=== PATIENT | male | born 1945 ===

== ENCOUNTER 2017-11-14 14:20 | Inpatient (IN) | payer MEDICARE, BC ==
--- NOTE | 2017-11-14 15:18 | C.PDOC ---
History Of Present Illness 72-year-old male, PMHx includes Diabetes, presents to the emergency department with complaints of swelling, redness, and pain for 4 days. Pt stepped on a nail on 11/09/18 with slippers. The following day he saw his PMD and was treated with antibiotics and tetanus. Today pt was evlauated by his physician practice administrator, Dr jacobson who instructed to come to ED for further evaluation. Denies numbness/ weakness, fever. PMD Sudheer Maria MD, Podiatry MD [place]. Time Seen by Provider: 11/14/17 14:35 Chief Complaint (Nursing): Lower Extremity Problem/Injury History Per: Patient History/Exam Limitations: no limitations Onset/Duration Of Symptoms: Days Past Medical History Reviewed: Historical Data, Nursing Documentation, Vital Signs Vital Signs: Last Vital Signs Temp 98.2 F 11/14/17 16:55 Pulse 75 11/14/17 16:55 Resp 18 11/14/17 16:55 BP 141/63 11/14/17 16:55 Pulse Ox 97 11/14/17 16:55 - [facility] Procedures OTH WOUND IRRIGATION (07/25/06) OTHER SKIN & SUBQ I D (07/25/06) Family History: States: No Known Family Hx - Social History Hx Alcohol Use: No Hx Substance Use: No - Immunization History Hx Tetanus Toxoid Vaccination: Yes (11/10/2017) Hx Influenza Vaccination: Yes Hx Pneumococcal Vaccination: Yes Review Of Systems Constitutional: Negative for: Fever Respiratory: Negative for: Shortness of Breath Gastrointestinal: Negative for: Vomiting Musculoskeletal: Positive for: Foot Pain Neurological: Negative for: Weakness, Numbness Physical Exam - Physical Exam Appears: Non-toxic, No Acute Distress Skin: Warm, Dry, No Rash Head: Atraumatic, Normacephalic Eye(s): bilateral: Normal Inspection, EOMI Nose: Normal Oral Mucosa: Moist Neck: Normal ROM Chest: Symmetrical Cardiovascular: Rhythm Regular Respiratory: Normal Breath Sounds, No Accessory Muscle Use Extremity: Tenderness (Left foot: puncture wound to plantar aspect, with swelling, tenderness and erythema to dorsal aspect. ), No Calf Tenderness, Capillary Refill (<2 sec), No Deformity, Swelling Pulses: Left Dorsalis Pedis: Decreased, Right Dorsalis Pedis: Decreased Neurological/Psych: Oriented x3, Normal Speech ED Course And Treatment - Laboratory Results Result Diagrams: 11/14/17 15:29 11/14/17 15:29 O2 Sat by Pulse Oximetry: 93 (RA) Pulse Ox Interpretation: Normal Progress Note: Case discussed with Dr Maria, agrees to admit under his serice for Cellulitis of L foot. Dr Diane, podiatry, evalauted pt and discussed case with Dr Crane, agreed upon plan and treatment. Disposition - Disposition Disposition: HOSPITALIZED Disposition Time: 17:26 Condition: STABLE - Clinical Impression Clinical Impression: Cellulitis, Puncture wound - Scribe Statement The provider has reviewed the documentation as recorded by the Scribe (Derick Hoover) All medical record entries made by the Scribe were at my direction and personally dictated by me. I have reviewed the chart and agree that the record accurately reflects my personal performance of the history, physical exam, medical decision making, and the department course for this patient. I have also personally directed, reviewed, and agree with the discharge instructions and disposition.
[2017-11-14 15:33] LABS: BASO # 0.1 K/uL (0.0-0.2); BASO % 0.7 % (0.0-2.0); EOS # 0.1 K/uL (0.0-0.7); EOS % 1.3 % (0.0-4.0); HEMOGLOBIN 12.4 g/dL (12.0-18.0); LYMPH # 1.5 K/uL (1.0-4.3); LYMPH % 17.9 % (20.0-40.0); MEAN CORPUSCULAR HEMOGLOBIN 30.9 pg (27.0-31.0); MEAN CORPUSCULAR HGB CONC 33.9 g/dL (33.0-37.0); MEAN PLATELET VOLUME 7.5 fL (7.2-11.7); MONO # 0.8 K/uL (0.0-0.8); NEUT # 5.8 K/uL (1.8-7.0); NEUT % 70.1 % (50.0-75.0); RBC 4.02 Mil/uL (4.40-5.90); RED CELL DISTRIBUTION WIDTH 13.4 % (11.5-14.5); WHITE BLOOD COUNT 8.3 K/uL (4.8-10.8)
[2017-11-14 15:56] LABS: ALB/GLOB RATIO 0.8 (1.0-2.1); ALBUMIN 3.9 g/dL (3.5-5.0); ALT/SGPT 24 U/L (21-72); AST/SGOT 35 U/L (17-59); BLOOD UREA NITROGEN 13 mg/dL (9-20); CALCIUM 9.1 mg/dl (8.6-10.4); GFR AFRICAN-AMERICAN > 60; GFR NON-AFRICAN AMERICAN > 60
--- NOTE | 2017-11-14 17:06 | CP.PCM.CON ---
History of Present Illness - History of Present Illness History of Present Illness: Consult note for Dr. Monique 72-year-old male patient with PMHx of DM was seen at bedside concerning Left foot cellulitis secondary to puncture wound. Patient stepped on a nail on 11/09 during his trip to [facility]. The nail punctured through his slippers and left a hole to his Left foot plantar aspect. He was given oral Abx by his PMD the next day and Tetanus. He deneis any N/V/F/C associated with t he wound. This patient is well-known to Dr. Monique who is planning to take this patient to OR for I&D tomorrow (11/15/17) 9:30AM. Podiatry treatment plan was explained to the patient and the patient agrees with podiatry plan. He denies numbness/weakness, fever. Review of Systems - Constitutional Constitutional: As Per HPI Past Patient History - Past Social History Smoking Status: Never Smoked - ENDOCRINE/METABOLIC Hx Diabetes Mellitus Type 1: Yes - PSYCHIATRIC Hx Substance Use: No - SURGICAL HISTORY Hx Surgeries: Yes Other/Comment: varicose vein, cyst on the back - ANESTHESIA Hx Anesthesia: Yes Hx Anesthesia Reactions: No Hx Malignant Hyperthermia: No Meds Allergies/Adverse Reactions: Allergies Allergy/AdvReac Type Severity Reaction Status Date / Time aspirin Allergy Intermediate RASH Verified 11/14/17 14:51 Physical Exam - Constitutional Appears: Well, Non-toxic, No Acute Distress - Head Exam Head Exam: ATRAUMATIC - Extremities Exam Additional comments: Bilateral lower extremity exam DERM: LEFT - Small open puncture wound noted to plantar aspect of Left mid-foot measuring 0.7cm x 0.7cm x 0.5cm. Purulent drainage is noted. Mild mal-odor noted , erythema noted to left mid-foot dorsal and plantarly. No probe to bone Right - Xerosis noted. Skin crack noted to heel, dried blood noted. Otherwise unremarkable VASC: Left foot warmer to touch. Palpable DP and PT noted to right foot 2/4, Non -palpable DP noted to Left foot, PT palpable 1/4. 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 NEURO: Gross sensation intact - Neurological Exam Neurological exam: Alert, Oriented x3 - Psychiatric Exam Psychiatric exam: Normal Affect, Normal Mood Results - Vital Signs Recent Vital Signs: Last Vital Signs Temp 98.6 F 11/14/17 14:22 Pulse 93 H 11/14/17 14:22 Resp 18 11/14/17 14:22 BP 138/56 L 11/14/17 14:22 Pulse Ox 93 L 11/14/17 15:24 - Labs Result Diagrams: 11/14/17 15:29 11/14/17 15:29 Labs: Laboratory Results - last 24 hr 11/14/17 11/14/17 15:29 15:29 WBC 8.3 RBC 4.02 L Hgb 12.4 Hct 36.6 MCV 91.0 MCH 30.9 MCHC 33.9 RDW 13.4 Plt Count 241 MPV 7.5 Neut % (Auto) 70.1 Lymph % (Auto) 17.9 L [place] % (Auto) 10.0 Eos % (Auto) 1.3 Baso % (Auto) 0.7 Neut # (Auto) 5.8 Lymph # (Auto) 1.5 [place] # (Auto) 0.8 Eos # (Auto) 0.1 Baso # (Auto) 0.1 ESR 112 H Sodium 140 Potassium 4.1 Chloride 101 Carbon Dioxide 27 Anion Gap 17 BUN 13 Creatinine 0.8 Est GFR ( Amer) > 60 Est GFR (Non-Af Amer) > 60 Random Glucose 232 H Calcium 9.1 Total Bilirubin 0.4 AST 35 ALT 24 Alkaline Phosphatase 83 Total Protein 8.5 H Albumin 3.9 Globulin 4.6 H Albumin/Globulin Ratio 0.8 L Assessment & Plan - Assessment and Plan (Free Text) Assessment: 72 yo male patient with puncture wound to left plantar foot Plan: Patient to OR tomorrow morning 9:30 AM Requesting medical clearance for Left foot incision and drainage by Dr. Monique labs and vitals reviewed NPO past midnight ordered Patient is aware of podiaty plan for surgery tomorrow morning Continue IV Abx Bilateral feet dressed with Betadine, DSD Podiatry will continue to follow in-house
[2017-11-14] MEDS ORDERED: Clindamycin 300 MG in Sodium Chloride 0.9% 50 ML IVPB STA (18:27)
[2017-11-14] MEDS: Dextrose 5%/0.45% NS 1,000 ML IV SCH (20:30)
[2017-11-14] MEDS ORDERED: Oxycodone/Acetaminophen 5/325 mg Tab ONE (20:34)
[2017-11-14] MEDS: Oxycodone/Acetaminophen 5/325 mg Tab PO PRN (20:38)
[2017-11-14] MEDS: (Novolin R) Insulin Human Regular 100 units/ml vial SC SCH (21:59)
[2017-11-14] MEDS: Piperacill/Tazo 3.375gm in Dex 3.375 GM/50 ML BAG IVPB SCH (22:11)
[2017-11-15] MEDS: Piperacill/Tazo 3.375gm in Dex 3.375 GM/50 ML BAG IVPB SCH ×3 (05:17→21:24)
[2017-11-15 06:03] LABS: BASO % 0.6 % (0.0-2.0); EOS # 0.2 K/uL (0.0-0.7); EOS % 2.5 % (0.0-4.0); HEMOGLOBIN 11.4 g/dL (12.0-18.0); LYMPH # 1.9 K/uL (1.0-4.3); LYMPH % 28.8 % (20.0-40.0); MEAN CELL VOLUME 90.6 fL (80.0-94.0); MEAN CORPUSCULAR HEMOGLOBIN 31.2 pg (27.0-31.0); MEAN CORPUSCULAR HGB CONC 34.4 g/dL (33.0-37.0); MEAN PLATELET VOLUME 7.5 fL (7.2-11.7); MONO # 0.7 K/uL (0.0-0.8); MONO % 11.4 % (0.0-10.0); NEUT # 3.7 K/uL (1.8-7.0); NEUT % 56.7 % (50.0-75.0); RBC 3.65 Mil/uL (4.40-5.90); RED CELL DISTRIBUTION WIDTH 13.9 % (11.5-14.5); WHITE BLOOD COUNT 6.5 K/uL (4.8-10.8)
[2017-11-15 06:10] LABS: INR 1.1; PROTHROMBIN TIME 12.3 SECONDS (9.7-12.2)
[2017-11-15 06:41] LABS: BLOOD UREA NITROGEN 14 mg/dL (9-20); CALCIUM 8.7 mg/dl (8.6-10.4); GFR AFRICAN-AMERICAN > 60; GFR NON-AFRICAN AMERICAN > 60
[2017-11-15] MEDS: (Novolin R) Insulin Human Regular 100 units/ml vial SC SCH ×4 (07:18→22:50)
--- NOTE | 2017-11-15 07:27 | RAD ---
PROCEDURE: Left Foot Radiographs. HISTORY: Left foot puncture wound COMPARISON: None. FINDINGS: BONES: No acute fracture or destructive bony lesion identified. JOINTS: Marked degenerative changes are identified throughout the interphalangeal joints diffusely with lesser similar changes present of the remaining joints of the left foot. Heterotopic calcification is identified at the dorsal medial mid to hindfoot soft tissues with no other radiodensity seen throughout the remaining left foot soft tissues. No emphysema soft tissue changes are identified. SOFT TISSUES: [id number] edema is suggested at the dorsal foot soft tissues predominate at the midfoot to forefoot. OTHER FINDINGS: None. IMPRESSION: Heterotopic calcification is identified in the linear fashion at the dorsomedial midfoot to hindfoot soft tissues and moderate soft tissue edema is seen predominate at the midfoot dorsally. No emphysematous soft tissue changes are identified. Further clinical correlation recommended. No fracture, subluxation or dislocation. Degenerative changes are seen at the forefoot greater than midfoot and hindfoot joints.
--- NOTE | 2017-11-15 08:12 | CP.PCM.CON ---
History of Present Illness - History of Present Illness History of Present Illness: Reason for consult: pre-op eval for I&D HPI: 72-year-old male, PMHx includes Diabetes, presents to the emergency department with complaints of swelling, redness, and pain for 4 days. Pt stepped on a nail on 11/09/18 with slippers. The following day he saw his PMD and was treated with antibiotics and tetanus. Today pt was evlauated by his testing coordinator, Dr jacobson who instructed to come to ED for further evaluation. Denies numbness/weakness, fever. Review of Systems - Constitutional Constitutional: absent: Fever, Headache - EENT Eyes: absent: Discharge Nose/Mouth/Throat: absent: Nasal Congestion - Cardiovascular Cardiovascular: absent: Chest Pain, Dyspnea, Pedal Edema, Syncope - Respiratory Respiratory: absent: Cough, Dyspnea, Dyspnea on Exertion - Gastrointestinal Gastrointestinal: absent: Abdominal Pain, Change in Bowel Habits, Melena, Vomiting - Genitourinary Genitourinary: absent: Difficulty Urinating, Urinary Incontinence - Musculoskeletal Musculoskeletal: absent: Abnormal Gait, Arthralgias Additional comments: pain in left foot - Neurological Neurological: absent: Abnormal Gait, Abnormal Hearing Past Patient History - Past Medical History & Family History Past Medical History?: Yes - Past Social History Smoking Status: Light Smoker < 10 Cigarettes Daily - CARDIAC Hx Cardiac Disorders: Yes Hx Circulatory Problems: Yes - PULMONARY Hx Respiratory Disorders: No - NEUROLOGICAL Hx Neurological Disorder: No - HEENT Hx HEENT Problems: No - RENAL Hx Chronic Kidney Disease: No - ENDOCRINE/METABOLIC Hx Endocrine Disorders: Yes Hx Diabetes Mellitus Type 1: Yes - HEMATOLOGICAL/ONCOLOGICAL Hx Blood Disorders: No - INTEGUMENTARY Hx Dermatological Problems: No - MUSCULOSKELETAL/RHEUMATOLOGICAL Hx Musculoskeletal Disorders: Yes Hx Falls: Yes - GASTROINTESTINAL Hx Gastrointestinal Disorders: No - GENITOURINARY/GYNECOLOGICAL Hx Genitourinary Disorders: No - PSYCHIATRIC Hx Psychophysiologic Disorder: No Hx Substance Use: No - SURGICAL HISTORY Hx Surgeries: Yes Other/Comment: varicose vein, cyst on the back removed - ANESTHESIA Hx Anesthesia: Yes Hx Anesthesia Reactions: No Hx Malignant Hyperthermia: No Meds Allergies/Adverse Reactions: Allergies Allergy/AdvReac Type Severity Reaction Status Date / Time aspirin Allergy Intermediate RASH Verified 11/14/17 14:51 - Medications Medications: Current Medications Heparin Sodium (Porcine) (Heparin) 5,000 units SC Q12 [facility]AN[facility] Last Admin: 11/14/17 22:04 Dose: 5,000 units Dextrose/Sodium Chloride (Dextrose 5%/0.45% Ns 1000 Ml) 1,000 mls @ 75 mls/hr IV .[id number] [facility] Last Admin: 11/14/17 20:30 Dose: 75 mls/hr Piperacillin Sod/Tazobactam Sod (Zosyn 3.375 Gm Iv Premix) 3.375 gm in 50 mls @ 100 mls/hr IVPB Q8 SHANIA PRN Reason: Protocol Last Admin: 11/15/17 05:17 Dose: 100 mls/hr Insulin Human Regular (Novolin R) 0 unit SC ACHS SHANIA PRN Reason: Protocol Last Admin: 11/15/17 07:18 Dose: Not Given Oxycodone/Acetaminophen (Percocet 5/325 Mg Tab) 1 tab PO Q8 PRN PRN Reason: Pain, moderate (4-7) Stop: 11/17/17 22:01 Last Admin: 11/14/17 20:38 Dose: 1 tab Physical Exam - Constitutional Appears: Non-toxic - Head Exam Head Exam: NORMAL INSPECTION - Eye Exam Eye Exam: absent: Scleral icterus - ENT Exam ENT Exam: absent: Mucous Membranes Moist - Neck Exam Neck exam: Positive for: Full Rom, Lymphadenopathy - Respiratory Exam Respiratory Exam: Decreased Breath Sounds - Cardiovascular Exam Cardiovascular Exam: REGULAR RHYTHM - GI/Abdominal Exam GI & Abdominal Exam: absent: Soft, Tenderness - Exam Exam: absent: Testicular Tenderness - Extremities Exam Extremities exam: Negative for: calf tenderness, pedal edema, tenderness - Neurological Exam Neurological exam: Alert, Oriented x3 Results - Vital Signs Recent Vital Signs: Last Vital Signs Temp 98.8 F 11/15/17 07:10 Pulse 67 11/15/17 07:10 Resp 18 11/15/17 07:10 BP 150/73 11/15/17 07:10 Pulse Ox 95 11/15/17 07:10 - Labs Result Diagrams: 11/15/17 05:58 11/15/17 05:58 Labs: Laboratory Results - last 24 hr 11/14/17 11/14/17 11/14/17 15:29 15:29 21:57 WBC 8.3 RBC 4.02 L Hgb 12.4 Hct 36.6 MCV 91.0 MCH 30.9 MCHC 33.9 RDW 13.4 Plt Count 241 MPV 7.5 Neut % (Auto) 70.1 Lymph % (Auto) 17.9 L [place] % (Auto) 10.0 Eos % (Auto) 1.3 Baso % (Auto) 0.7 Neut # (Auto) 5.8 Lymph # (Auto) 1.5 [place] # (Auto) 0.8 Eos # (Auto) 0.1 Baso # (Auto) 0.1 ESR 112 H PT INR Sodium 140 Potassium 4.1 Chloride 101 Carbon Dioxide 27 Anion Gap 17 BUN 13 Creatinine 0.8 Est GFR ( Amer) > 60 Est GFR (Non-Af Amer) > 60 POC Glucose (mg/dL) 202 H Random Glucose 232 H Calcium 9.1 Total Bilirubin 0.4 AST 35 ALT 24 Alkaline Phosphatase 83 Total Protein 8.5 H Albumin 3.9 Globulin 4.6 H Albumin/Globulin Ratio 0.8 L 11/15/17 11/15/17 11/15/17 05:58 05:58 05:58 WBC 6.5 RBC 3.65 L Hgb 11.4 L Hct 33.1 L MCV 90.6 MCH 31.2 H MCHC 34.4 RDW 13.9 Plt Count 222 MPV 7.5 Neut % (Auto) 56.7 Lymph % (Auto) 28.8 [place] % (Auto) 11.4 H Eos % (Auto) 2.5 Baso % (Auto) 0.6 Neut # (Auto) 3.7 Lymph # (Auto) 1.9 [place] # (Auto) 0.7 Eos # (Auto) 0.2 Baso # (Auto) 0.0 ESR PT 12.3 H INR 1.1 Sodium 141 Potassium 4.3 Chloride 101 Carbon Dioxide 30 Anion Gap 14 BUN 14 Creatinine 0.9 Est GFR ( Amer) > 60 Est GFR (Non-Af Amer) > 60 POC Glucose (mg/dL) Random Glucose 144 H Calcium 8.7 Total Bilirubin AST ALT Alkaline Phosphatase Total Protein Albumin Globulin Albumin/Globulin Ratio 11/15/17 06:07 WBC RBC Hgb Hct MCV MCH MCHC RDW Plt Count MPV Neut % (Auto) Lymph % (Auto) [place] % (Auto) Eos % (Auto) Baso % (Auto) Neut # (Auto) Lymph # (Auto) [place] # (Auto) Eos # (Auto) Baso # (Auto) ESR PT INR Sodium Potassium Chloride Carbon Dioxide Anion Gap BUN Creatinine Est GFR ( Amer) Est GFR (Non-Af Amer) POC Glucose (mg/dL) 145 H Random Glucose Calcium Total Bilirubin AST ALT Alkaline Phosphatase Total Protein Albumin Globulin Albumin/Globulin Ratio Assessment & Plan - Assessment and Plan (Free Text) Assessment: Foreign body, left foot w/ cellulitis T2dm HTN Plan: Pt may go for I&D under moderate sedation or general anesthesia with acceptable risk. Antibiotic as per ID - Date & Time Date: 11/15/17 Time: 08:16
--- NOTE | 2017-11-15 08:43 | CP.PCM.HP ---
History of Present Illness - History of Present Illness History of Present Illness: CC: Swelling 72 y/o male with CAD s/p [place], NIDDM. Patient on 11/09 step on nail. He was seen 11/11 and started on Augmentin. Patient continue to swell and was draining pus. He was seen by podiatry. Patient wound was cleaned and sent to ER. Present on Admission - Present on Admission Any Indicators Present on Admission: Yes History of DVT/PE: No History of Uncontrolled Diabetes: No Urinary Catheter: No Decubitus Ulcer Present: No Review of Systems - Review of Systems Systems not reviewed;Unavailable: Acuity of Condition - Constitutional Constitutional: absent: Chills, Fever, Headache, Increased Appetite, Sleep Apnea , Weight Loss - EENT Eyes: absent: Loss of Peripheral Vision, Sees Flashes, Loss of Vision Ears: absent: Ear Discharge Nose/Mouth/Throat: absent: Nasal Discharge, Post Nasal Drip, Sinus Pressure, Change in Voice, Dysphagia, Mouth Pain - Cardiovascular Cardiovascular: absent: Chest Pain, Irregular Heart Rhythm, Leg Edema, Leg Ulcers, Orthopnea, Palpitations, Paroxysmal Nocturnal Dyspnea - Respiratory Respiratory: Cough. absent: Dyspnea, Dyspnea on Exertion, Pain on Inspiration, Chest Congestion - Gastrointestinal Gastrointestinal: absent: Abdominal Pain, Cramping, Dyspepsia, Melena - Genitourinary Genitourinary: absent: Hematuria, Urinary Urgency, Hx Renal/Bladder Calculi - Musculoskeletal Musculoskeletal: absent: Abnormal Gait, Loss of Height, Muscle Weakness, Myalgias, Neck Pain - Integumentary Integumentary: absent: Alopecia, Furuncle, New Lesions - Psychiatric Psychiatric: absent: Abnormal Sleep Pattern, Confusion, Hopelessness, Paranoia Past Patient History - Infectious Disease Hx of Infectious Diseases: None - Past Medical History & Family History Past Medical History?: Yes - Past Social History Smoking Status: Light Smoker < 10 Cigarettes Daily - CARDIAC Hx Cardiac Disorders: Yes Hx Circulatory Problems: Yes - PULMONARY Hx Respiratory Disorders: No - NEUROLOGICAL Hx Neurological Disorder: No - HEENT Hx HEENT Problems: No - RENAL Hx Chronic Kidney Disease: No - ENDOCRINE/METABOLIC Hx Endocrine Disorders: Yes Hx Diabetes Mellitus Type 1: Yes - HEMATOLOGICAL/ONCOLOGICAL Hx Blood Disorders: No - INTEGUMENTARY Hx Dermatological Problems: No - MUSCULOSKELETAL/RHEUMATOLOGICAL Hx Musculoskeletal Disorders: Yes Hx Falls: Yes - GASTROINTESTINAL Hx Gastrointestinal Disorders: No - GENITOURINARY/GYNECOLOGICAL Hx Genitourinary Disorders: No - PSYCHIATRIC Hx Psychophysiologic Disorder: No Hx Substance Use: No - SURGICAL HISTORY Hx Surgeries: Yes Other/Comment: varicose vein, cyst on the back removed - ANESTHESIA Hx Anesthesia: Yes Hx Anesthesia Reactions: No Hx Malignant Hyperthermia: No Meds Allergies/Adverse Reactions: Allergies Allergy/AdvReac Type Severity Reaction Status Date / Time aspirin Allergy Intermediate RASH Verified 11/14/17 14:51 Physical Exam - Constitutional Appears: Well - Eye Exam Eye Exam: Normal appearance - ENT Exam ENT Exam: Mucous Membranes Moist - Neck Exam Neck exam: Positive for: Full Rom. Negative for: Lymphadenopathy, Tenderness - Respiratory Exam Respiratory Exam: Clear to Auscultation Bilateral. absent: Rales, Rhonchi, Wheezes - Cardiovascular Exam Cardiovascular Exam: +S1, +S2. absent: Gallop, REGULAR RHYTHM, JVD, Systolic Murmur - GI/Abdominal Exam GI & Abdominal Exam: Soft. absent: Rebound, Rigid, Tenderness - Extremities Exam Extremities exam: Positive for: full ROM. Negative for: calf tenderness, joint swelling, normal capillary refill ((+) left foot w/ puncture markm * (+_ mathieu swelling on distal fppt) Results - Vital Signs Recent Vital Signs: Last Vital Signs Temp 98.8 F 11/15/17 07:10 Pulse 67 11/15/17 07:10 Resp 18 11/15/17 07:10 BP 150/73 11/15/17 07:10 Pulse Ox 95 11/15/17 07:10 - Labs Result Diagrams: 11/15/17 05:58 11/15/17 05:58 Labs: Laboratory Results - last 24 hr 11/14/17 11/14/17 11/14/17 15:29 15:29 21:57 WBC 8.3 RBC 4.02 L Hgb 12.4 Hct 36.6 MCV 91.0 MCH 30.9 MCHC 33.9 RDW 13.4 Plt Count 241 MPV 7.5 Neut % (Auto) 70.1 Lymph % (Auto) 17.9 L [place] % (Auto) 10.0 Eos % (Auto) 1.3 Baso % (Auto) 0.7 Neut # (Auto) 5.8 Lymph # (Auto) 1.5 [place] # (Auto) 0.8 Eos # (Auto) 0.1 Baso # (Auto) 0.1 ESR 112 H PT INR Sodium 140 Potassium 4.1 Chloride 101 Carbon Dioxide 27 Anion Gap 17 BUN 13 Creatinine 0.8 Est GFR ( Amer) > 60 Est GFR (Non-Af Amer) > 60 POC Glucose (mg/dL) 202 H Random Glucose 232 H Calcium 9.1 Total Bilirubin 0.4 AST 35 ALT 24 Alkaline Phosphatase 83 Total Protein 8.5 H Albumin 3.9 Globulin 4.6 H Albumin/Globulin Ratio 0.8 L 11/15/17 11/15/17 11/15/17 05:58 05:58 05:58 WBC 6.5 RBC 3.65 L Hgb 11.4 L Hct 33.1 L MCV 90.6 MCH 31.2 H MCHC 34.4 RDW 13.9 Plt Count 222 MPV 7.5 Neut % (Auto) 56.7 Lymph % (Auto) 28.8 [place] % (Auto) 11.4 H Eos % (Auto) 2.5 Baso % (Auto) 0.6 Neut # (Auto) 3.7 Lymph # (Auto) 1.9 [place] # (Auto) 0.7 Eos # (Auto) 0.2 Baso # (Auto) 0.0 ESR PT 12.3 H INR 1.1 Sodium 141 Potassium 4.3 Chloride 101 Carbon Dioxide 30 Anion Gap 14 BUN 14 Creatinine 0.9 Est GFR ( Amer) > 60 Est GFR (Non-Af Amer) > 60 POC Glucose (mg/dL) Random Glucose 144 H Calcium 8.7 Total Bilirubin AST ALT Alkaline Phosphatase Total Protein Albumin Globulin Albumin/Globulin Ratio 11/15/17 06:07 WBC RBC Hgb Hct MCV MCH MCHC RDW Plt Count MPV Neut % (Auto) Lymph % (Auto) [place] % (Auto) Eos % (Auto) Baso % (Auto) Neut # (Auto) Lymph # (Auto) [place] # (Auto) Eos # (Auto) Baso # (Auto) ESR PT INR Sodium Potassium Chloride Carbon Dioxide Anion Gap BUN Creatinine Est GFR ( Amer) Est GFR (Non-Af Amer) POC Glucose (mg/dL) 145 H Random Glucose Calcium Total Bilirubin AST ALT Alkaline Phosphatase Total Protein Albumin Globulin Albumin/Globulin Ratio Assessment & Plan - Assessment and Plan (Free Text) Assessment: L foot cellulitis, NIDDM, CAD IV antibiotic For Podiatry procedure
--- NOTE | 2017-11-15 08:51 | CP.PCM.PN ---
Subjective - Date & Time of Evaluation Date of Evaluation: 11/15/17 Time of Evaluation: 08:30 - Subjective Subjective: Consult note for Dr. Monique 72-year-old male patient patient was seen at bedside this morning concerning scheduled surgery for Left foot incision and drainage with Dr. Monique. Patient is resting in bed with no report of acute distress. AAOx3. Dressing to Left foot was taken off at the time of visit. Patient was again explained of podiatry surgial plan of incision and drainage which the patient understands and agrees. NPO status is confirmed. Patient denies of any N/V/F/C or SOB Objective - Vital Signs/Intake and Output Vital Signs (last 24 hours): Temp Pulse Resp BP Pulse Ox 98.8 F 67 18 150/73 95 11/15/17 07:10 11/15/17 07:10 11/15/17 07:10 11/15/17 07:10 11/15/17 07:10 Intake and Output: 11/15/17 11/15/17 06:59 18:59 Intake Total 850 Output Total 200 650 Balance 650 -650 - Medications Medications: Current Medications Heparin Sodium (Porcine) (Heparin) 5,000 units SC Q12 [facility] Last Admin: 11/14/17 22:04 Dose: 5,000 units Dextrose/Sodium Chloride (Dextrose 5%/0.45% Ns 1000 Ml) 1,000 mls @ 75 mls/hr IV .[id number] [facility] Last Admin: 11/14/17 20:30 Dose: 75 mls/hr Piperacillin Sod/Tazobactam Sod (Zosyn 3.375 Gm Iv Premix) 3.375 gm in 50 mls @ 100 mls/hr IVPB Q8 [facility]ANIA PRN Reason: Protocol Last Admin: 11/15/17 05:17 Dose: 100 mls/hr Insulin Human Regular (Novolin R) 0 unit SC ACHS SHANIA PRN Reason: Protocol Last Admin: 11/15/17 07:18 Dose: Not Given Oxycodone/Acetaminophen (Percocet 5/325 Mg Tab) 1 tab PO Q8 PRN PRN Reason: Pain, moderate (4-7) Stop: 11/17/17 22:01 Last Admin: 11/14/17 20:38 Dose: 1 tab - Labs Labs: 11/15/17 05:58 11/15/17 05:58 PT 12.3 SECONDS (9.7-12.2) H 11/15/17 05:58 INR 1.1 11/15/17 05:58 - Constitutional Appears: Well, Non-toxic, No Acute Distress - Extremities Exam Additional comments: Bilateral lower extremity exam DERM: LEFT - Small open puncture wound noted to plantar aspect of Left mid-foot measuring 0.7cm x 0.7cm x 0.5cm. Purulent drainage is noted. Mild mal-odor noted , erythema noted to left mid-foot dorsal and plantarly. No probe to bone Right - Xerosis noted. Skin crack noted to heel, dried blood noted. Otherwise unremarkable VASC: Left foot warmer to touch. Palpable DP and PT noted to right foot 2/4, Non -palpable DP noted to Left foot, PT palpable 1/4. 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 NEURO: Gross sensation intact - Neurological Exam Neurological Exam: Alert, Awake, Oriented x3 - Psychiatric Exam Psychiatric exam: Normal Affect, Normal Mood Assessment and Plan - Assessment and Plan (Free Text) Assessment: 72 yo male patient with puncture wound to left plantar foot Plan: Patient was seen, evaluated Rounded with Dr. Monique To OR this morning for Incision and drainage of Left foot labs and vitals reviewed NPO status confirmed No guarantees made regarding outcome of surgery Cardiology clearance by Dr. Joaquin obtained Written surgical consent obtained Podiatry will continue to follow in-house
[2017-11-15] MEDS ORDERED: ceFAZolin IV 1 gm in Dextrose 0 GM/0 ML BAG IVPB ONE (09:07)
[2017-11-15] MEDS: Bupivacaine HCl 0.5% PF (10 ml) Inj ONE ×2 (09:55→10:35)
[2017-11-15] MEDS ORDERED: Lidocaine Hydrochloride 10 ML INJ ONE (09:56)
[2017-11-15] MEDS ORDERED: Midazolam 2 MG/2 ML VIAL ONE (10:26)
[2017-11-15] MEDS ORDERED: Propofol 10 mg/ml Inj (20 ML) ONE (10:28)
[2017-11-15] MEDS ORDERED: Lidocaine 2% Inj (20ml) ONE (10:34)
[2017-11-15] MEDS ORDERED: Bupivacaine HCl 0.25% PF (10 ml) Inj ONE (10:34)
[2017-11-15] MEDS: Dextrose 5%/0.45% NS 1,000 ML IV SCH (10:45)
--- NOTE | 2017-11-15 11:10 | PCM.SURG1 ---
Surgeon's Initial Post Op Note - Surgeon's Notes Surgeon: Dr. Monique Rubber Block Layer: Dr. Dayron Diane Type of Anesthesia: IV Sedation, Local Anesthesia Administered By: Dr. Pierce Pre-Operative Diagnosis: Left foot abscess secondary to puncture wound Operative Findings: Peroxide DSD packing Post-Operative Diagnosis: same Operation Performed: Left foot incision and drainage Specimen/Specimens Removed: Left foot non-viable tissue Estimated Blood Loss: EBL {In ML}: 10 Blood Products Given: N/A Drains Used: No Drains Post-Op Condition: Good Date of Surgery/Procedure: 11/15/17 Time of Surgery/Procedure: 10:00
[2017-11-15] MEDS ORDERED: HYDROmorphone 0.5 mg/0.5 ml ISec IVP PRN (11:18)
[2017-11-15] MEDS ORDERED: Lactated Ringer's 1,000 ML IV SCH (11:30)
[2017-11-15] MEDS ORDERED: Vancomycin 1 gm/NS 200 ml 1 GM/200 ML BAG IVPB SCH (13:00)
[2017-11-15] MEDS: Oxycodone/Acetaminophen 5/325 mg Tab PO PRN (14:26)
--- NOTE | 2017-11-15 16:00 | CP.PCM.CON ---
History of Present Illness - History of Present Illness History of Present Illness: 72-year-old male patient with PMHx of DM was seen at bedside concerning Left foot cellulitis secondary to puncture wound. According to HX , the Patient stepped on a nail on 11/09 during his trip to [facility]. The nail punctured through his slippers and left a hole to his Left foot plantar aspect. He was given oral Abx by his PMD the next day and Tetanus. DESPITE I AND D THE PT C/O SEVERE PPAIN AND CHILLS WITH RIGORS IV ANTIBIOTICS IN PROGRESS Review of Systems - Review of Systems All systems: reviewed and no additional remarkable complaints except - Constitutional Constitutional: As Per HPI - EENT Eyes: absent: As Per HPI, Blind Spots, Blurred Vision, Change in Vision, Decreased Night Vision, Diplopia, Discharge, Dry Eye, Exophthalmos, Floaters, Irritation, Itchy Eyes, Loss of Peripheral Vision, Pain, Photophobia, Requires Corrective Lenses, Sees Flashes, Spots in Vision, Tunnel Vision, Other Visual Disturbances, Loss of Vision, Other Ears: absent: As Per HPI, Decreased Hearing, Ear Discharge, Ear Pain, Tinnitus, Abnormal Hearing, Disequilibrium, Dizziness, Other Nose/Mouth/Throat: absent: As Per HPI, Epistaxis, Nasal Congestion, Nasal Discharge, Nasal Obstruction, Nasal Trauma, Nose Pain, Post Nasal Drip, Sinus Pain, Sinus Pressure, Bleeding Gums, Change in Voice, Dental Pain, Dry Mouth, Dysphagia, Halitosis, Hoarsness, Lip Swelling, Mouth Lesions, Mouth Pain, Odynophagia, Sore Throat, Throat Swelling, Tongue Swelling, Facial Pain, Neck Pain, Neck Mass, Other - Cardiovascular Cardiovascular: absent: As Per HPI, Acrocyanosis, Chest Pain, Chest Pain at Rest , Chest Pain with Activity, Claudication, Diaphoresis, Dyspnea, Dyspnea on Exertion, Edema, Irregular Heart Rhythm, Pain Radiating to Arm/Neck/Jaw, Leg Edema, Leg Ulcers, Lightheadedness, Orthopnea, Palpitations, Paroxysmal Nocturnal Dyspnea, Pedal Edema, Radiating Pain, Rapid Heart Rate, Slow Heart Rate, Syncope, Other - Respiratory Respiratory: absent: As Per HPI, Cough, Dyspnea, Hemoptysis, Dyspnea on Exertion , Wheezing, Snoring, Stridor, Pain on Inspiration, Chest Congestion, Excessive Mucous Production, Change in Mucous Color, Pain with Coughing, Other - Gastrointestinal Gastrointestinal: absent: As Per HPI, Abdominal Pain, Belching, Bloating, Change in Bowel Habits, Change in Stool Character, Coffee Ground Emesis, Constipation, Cramping, Diarrhea, Dyspepsia, Dysphagia, Early Satiety, Excessive Flatus, Fecal Incontinence, Heartburn, Hematemesis, Hematochezia, Loose Stools, Melena, Nausea, Odynophagia, Temesmus, Vomiting, Other - Genitourinary Genitourinary: absent: As Per HPI, Change in Urinary Stream, Difficulty Urinating, Dysuria, Flank Pain, Hematuria, Pyuria, Nocturia, Urinary Incontinence, Urinary Frequency, Urinary Hesitance, Urinary Urgency, Voiding Freq/Small Amts, Freq UTI, Hx Renal/Bladder Calculi, Hx /Renal Surgery, Bladder Distension, Other - Musculoskeletal Musculoskeletal: As Per HPI - Integumentary Integumentary: As Per HPI, Skin Pain, Wounds - Neurological Neurological: absent: As Per HPI, Abnormal Gait, Abnormal Hearing, Abnormal Movements, Abnormal Speech, Behavioral Changes, Burning Sensations, Confusion, Convulsions, Disequilibrium, Dizziness, Numbness, Focal Weakness, Frequent Falls , Headaches, Lack of Coordination, Loss of Vision, Memory Loss, Paresthesias, Radicular Pain, Restless Legs, Sensory Deficit, Syncope, Tingling, Tremor, Vertigo, Weakness, Other Visual Disturbances, Other - Psychiatric Psychiatric: absent: As Per HPI, Abnormal Sleep Pattern, Anhedonia, Anxiety, Auditory Hallucinations, Behavioral Changes, Change in Appetite, Change in Libido, Confusion, Depression, Difficulty Concentrating, Hallucinations, Homicidal Ideation, Hopelessness, Irritability, Memory Loss, Mood Swings, Panic Attacks, Paranoia, Suicidal Ideation, Visual Hallucinations, Tactile Hallucinations, Other - Endocrine Endocrine: absent: As Per HPI, Change in Body Appearance, Change in Libido, Cold Intolorance, Deepening of Voice, Excessive Sweating, Fatigue, Flushing, Heat Intolorance, Increase in Ring/Shoe/Hat Size, Palpitations, Polydipsia, Polyphagia, Polyuria, Other - Hematologic/Lymphatic Hematologic: absent: As Per HPI, Easy Bleeding, Easy Bruising, Lymphadenopathy, Other Past Patient History - Infectious Disease Hx of Infectious Diseases: None - Past Medical History & Family History Past Medical History?: Yes - Past Social History Smoking Status: Light Smoker < 10 Cigarettes Daily - CARDIAC Hx Cardiac Disorders: Yes Hx Circulatory Problems: Yes - PULMONARY Hx Respiratory Disorders: No - NEUROLOGICAL Hx Neurological Disorder: No - HEENT Hx HEENT Problems: No - RENAL Hx Chronic Kidney Disease: No - ENDOCRINE/METABOLIC Hx Endocrine Disorders: Yes Hx Diabetes Mellitus Type 1: Yes - HEMATOLOGICAL/ONCOLOGICAL Hx Blood Disorders: No - INTEGUMENTARY Hx Dermatological Problems: No - MUSCULOSKELETAL/RHEUMATOLOGICAL Hx Musculoskeletal Disorders: Yes Hx Falls: Yes - GASTROINTESTINAL Hx Gastrointestinal Disorders: No - GENITOURINARY/GYNECOLOGICAL Hx Genitourinary Disorders: No - PSYCHIATRIC Hx Psychophysiologic Disorder: No Hx Substance Use: No - SURGICAL HISTORY Hx Surgeries: Yes Other/Comment: varicose vein, cyst on the back removed - ANESTHESIA Hx Anesthesia: Yes Hx Anesthesia Reactions: No Hx Malignant Hyperthermia: No Meds Allergies/Adverse Reactions: Allergies Allergy/AdvReac Type Severity Reaction Status Date / Time aspirin Allergy Intermediate RASH Verified 11/14/17 14:51 - Medications Medications: Current Medications Acetaminophen (Tylenol 325mg Tab) 650 mg PO Q6 PRN PRN Reason: Pain, MILD (1-3) Heparin Sodium (Porcine) (Heparin) 5,000 units SC Q12 [facility] Last Admin: 11/14/17 22:04 Dose: 5,000 units Dextrose/Sodium Chloride (Dextrose 5%/0.45% Ns 1000 Ml) 1,000 mls @ 75 mls/hr IV .[id number] [facility] Last Admin: 11/15/17 10:45 Dose: Not Given Piperacillin Sod/Tazobactam Sod (Zosyn 3.375 Gm Iv Premix) 3.375 gm in 50 mls @ 100 mls/hr IVPB Q8 [facility] PRN Reason: Protocol Last Admin: 11/15/17 14:54 Dose: 100 mls/hr Lactated Ringer's (Lactated Ringer's) 1,000 mls @ 150 mls/hr IV .[id number] [facility] Vancomycin/Sodium Chloride (Vancomycin 1 Gm/Ns 200 Ml) 1 gm in 200 mls @ 160.1 mls/hr IVPB Q24H [facility] PRN Reason: Protocol Stop: 11/20/17 13:01 Last Admin: 11/15/17 13:10 Dose: 160.1 mls/hr Insulin Human Regular (Novolin R) 0 unit SC ACHS [facility] PRN Reason: Protocol Last Admin: 11/15/17 12:20 Dose: 2 unit Oxycodone/Acetaminophen (Percocet 5/325 Mg Tab) 1 tab PO Q8 PRN PRN Reason: Pain, moderate (4-7) Stop: 11/17/17 22:01 Last Admin: 11/15/17 14:26 Dose: 1 tab Physical Exam - Constitutional Appears: Toxic, In Acute Distress - Head Exam Head Exam: ATRAUMATIC, NORMAL INSPECTION, NORMOCEPHALIC - Eye Exam Eye Exam: PERRL. absent: Scleral icterus - ENT Exam ENT Exam: Mucous Membranes Dry, Normal External Ear Exam, Normal Oropharynx, TM' s Normal Bilaterally - Neck Exam Neck exam: Negative for: Lymphadenopathy - Respiratory Exam Respiratory Exam: Decreased Breath Sounds, Clear to Auscultation Bilateral - Cardiovascular Exam Cardiovascular Exam: Tachycardia, REGULAR RHYTHM, +S1, +S2 - GI/Abdominal Exam GI & Abdominal Exam: Diminished Bowel Sounds, Soft. absent: Tenderness - Rectal Exam Rectal Exam: Deferred - Exam Exam: NORMAL INSPECTION - Extremities Exam Extremities exam: Positive for: full ROM, normal capillary refill, pedal edema, tenderness, pedal pulses present. Negative for: calf tenderness, joint swelling , normal inspection - Back Exam Back exam: absent: CVA tenderness (L), CVA tenderness (R), paraspinal tenderness - Neurological Exam Neurological exam: Alert, CN II-XII Intact, Oriented x3, Reflexes Normal - Skin Skin Exam: Dry, Warm Additional comments: LEFT - Small open puncture wound noted to plantar aspect of Left mid-foot measuring 0.7cm x 0.7cm x 0.5cm. Purulent drainage is noted. Mild mal-odor noted , erythema noted to left mid-foot dorsal and plantarly. No probe to bone Right - Xerosis noted. Skin crack noted to heel, dried blood noted. Otherwise unremarkable VASC: Left foot warmer to touch. Palpable DP and PT noted to right foot 2/4, Non -palpable DP noted to Left foot, PT palpable 1/4. PAN OPERATOR less than 3 seconds noted to all digits ORTHO: Pain on palpation to Left foot distal to ankel joint. NEURO: Gross sensation intact Results - Vital Signs Recent Vital Signs: Last Vital Signs Temp 97.6 F 11/15/17 11:30 Pulse 61 11/15/17 11:30 Resp 13 11/15/17 11:30 BP 147/74 11/15/17 11:30 Pulse Ox 100 11/15/17 11:30 - Labs Result Diagrams: 11/15/17 05:58 11/15/17 05:58 Labs: Laboratory Results - last 24 hr 11/14/17 11/14/17 11/15/17 15:29 21:57 05:58 WBC 6.5 RBC 3.65 L Hgb 11.4 L Hct 33.1 L MCV 90.6 MCH 31.2 H MCHC 34.4 RDW 13.9 Plt Count 222 MPV 7.5 Neut % (Auto) 56.7 Lymph % (Auto) 28.8 [place] % (Auto) 11.4 H Eos % (Auto) 2.5 Baso % (Auto) 0.6 Neut # (Auto) 3.7 Lymph # (Auto) 1.9 [place] # (Auto) 0.7 Eos # (Auto) 0.2 Baso # (Auto) 0.0 ESR 112 H PT INR Sodium Potassium Chloride Carbon Dioxide Anion Gap BUN Creatinine Est GFR ( Amer) Est GFR (Non-Af Amer) POC Glucose (mg/dL) 202 H Random Glucose Calcium 11/15/17 11/15/17 11/15/17 05:58 05:58 06:07 WBC RBC Hgb Hct MCV MCH MCHC RDW Plt Count MPV Neut % (Auto) Lymph % (Auto) [place] % (Auto) Eos % (Auto) Baso % (Auto) Neut # (Auto) Lymph # (Auto) [place] # (Auto) Eos # (Auto) Baso # (Auto) ESR PT 12.3 H INR 1.1 Sodium 141 Potassium 4.3 Chloride 101 Carbon Dioxide 30 Anion Gap 14 BUN 14 Creatinine 0.9 Est GFR ( Amer) > 60 Est GFR (Non-Af Amer) > 60 POC Glucose (mg/dL) 145 H Random Glucose 144 H Calcium 8.7 11/15/17 11:15 WBC RBC Hgb Hct MCV MCH MCHC RDW Plt Count MPV Neut % (Auto) Lymph % (Auto) [place] % (Auto) Eos % (Auto) Baso % (Auto) Neut # (Auto) Lymph # (Auto) [place] # (Auto) Eos # (Auto) Baso # (Auto) ESR PT INR Sodium Potassium Chloride Carbon Dioxide Anion Gap BUN Creatinine Est GFR ( Amer) Est GFR (Non-Af Amer) POC Glucose (mg/dL) 192 H Random Glucose Calcium Assessment & Plan (1) Diabetic foot infection Status: Acute (2) Cellulitis Status: Acute (3) Puncture wound Status: Acute - Assessment and Plan (Free Text) Assessment: RULE OUT OM RECC VASCULAR EVAL AND MRI OF FOOT CONT IV ANTIBIOTICS
[2017-11-15 20:22] LABS: URINE BILIRUBIN NEGATIVE (NEGATIVE); URINE BLOOD NEGATIVE (NEGATIVE); URINE CLARITY Clear (Clear); URINE COLOR Straw (YELLOW); URINE GLUCOSE (UA) 3+ mg/dL (Normal); URINE LEUKOCYTE ESTERASE NEG Leu/uL (Negative); URINE PROTEIN NEGATIVE (NEGATIVE); URINE UROBILINOGEN NORMAL mg/dL (0.2-1.0)
[2017-11-16] MEDS: Oxycodone/Acetaminophen 5/325 mg Tab PO PRN ×2 (02:22→10:56)
[2017-11-16] MEDS: Vancomycin 1 gm/NS 200 ml 1 GM/200 ML BAG IVPB SCH ×2 (07:39→12:48)
[2017-11-16] MEDS: (Novolin R) Insulin Human Regular 100 units/ml vial SC SCH ×4 (08:29→21:33)
--- NOTE | 2017-11-16 12:45 | CP.PCM.PN ---
Subjective - Date & Time of Evaluation Date of Evaluation: 11/16/17 Time of Evaluation: 11:41 - Subjective Subjective: Consult note for Dr. Monique 72-year-old male patient 1 day s/p Left foot Incision and Drainage was seen at bedside this morning with attending Dr. Monique. Patient is resting in bed with no report of acute distress. AAOx3. Dressing cdi. Patient admits to mild pain when changing dressing. Patient denies of any N/V/F/C or SOB Objective - Vital Signs/Intake and Output Vital Signs (last 24 hours): Temp Pulse Resp BP Pulse Ox 98.2 F 68 21 148/67 98 11/16/17 07:40 11/16/17 07:40 11/16/17 07:40 11/16/17 07:40 11/16/17 07:40 Intake and Output: 11/16/17 11/16/17 06:59 18:59 Intake Total 840 Output Total 1200 825 Balance -1200 15 - Medications Medications: Current Medications Acetaminophen (Tylenol 325mg Tab) 650 mg PO Q6 PRN PRN Reason: Pain, MILD (1-3) Last Admin: 11/15/17 17:05 Dose: 650 mg Heparin Sodium (Porcine) (Heparin) 5,000 units SC Q12 [facility] Last Admin: 11/14/17 22:04 Dose: 5,000 units Vancomycin/Sodium Chloride (Vancomycin 1 Gm/Ns 200 Ml) 1 gm in 200 mls @ 133 mls/hr IVPB Q12H [facility] PRN Reason: Protocol Stop: 11/21/17 01:01 Last Admin: 11/16/17 07:39 Dose: 133 mls/hr Insulin Human Regular (Novolin R) 0 unit SC ACHS [facility] PRN Reason: Protocol Last Admin: 11/16/17 08:29 Dose: 2 unit Oxycodone/Acetaminophen (Percocet 5/325 Mg Tab) 1 tab PO Q8 PRN PRN Reason: Pain, moderate (4-7) Stop: 11/17/17 22:01 Last Admin: 11/16/17 10:56 Dose: 1 tab - Labs Labs: 11/15/17 05:58 11/15/17 05:58 PT 12.3 SECONDS (9.7-12.2) H 11/15/17 05:58 INR 1.1 11/15/17 05:58 - Constitutional Appears: Well, Non-toxic, No Acute Distress - Head Exam Head Exam: ATRAUMATIC - Extremities Exam Additional comments: Bilateral lower extremity exam DERM: LEFT - Incision site to plantar aspect of left foot measuring approx. 7cm linear longitudinal. No purulent drainage is noted. Mild sero sanguinous drainage noted. No maceration noted. Mild erythema noted around the incision site. No mal-odor noted. Right - Xerosis noted. Skin crack noted to heel, dried blood noted. Otherwise unremarkable VASC: Left foot warmer to touch. Palpable DP and PT noted to right foot 2/4, Non -palpable DP noted to Left foot, PT palpable 1/4. [employer]ITE [employer]AT [employer]ILDER less than 3 seconds noted to all digits ORTHO: Pain on palpation to Left foot distal to ankel joint. NEURO: Gross sensation intact - Neurological Exam Neurological Exam: Alert - Psychiatric Exam Psychiatric exam: Normal Affect, Normal Mood Assessment and Plan - Assessment and Plan (Free Text) Assessment: 72 yo male patient with puncture wound to left plantar foot Plan: Patient was seen, evaluated Rounded with Dr. Monique labs and vitals reviewed Left foot cleansd with peroxide, dressed with DSD, ABD, BOAZ bandage Non-weight ebaring to Left foot Patient is stable from podiatry stand point. Podiatry will continue to follow in-house
[2017-11-16 14:03] LABS: BASO # 0.1 K/uL (0.0-0.2); BASO % 0.8 % (0.0-2.0); EOS # 0.2 K/uL (0.0-0.7); EOS % 2.8 % (0.0-4.0); HEMOGLOBIN 11.4 g/dL (12.0-18.0); LYMPH # 1.4 K/uL (1.0-4.3); LYMPH % 21.6 % (20.0-40.0); MEAN CELL VOLUME 90.9 fL (80.0-94.0); MEAN CORPUSCULAR HEMOGLOBIN 31.1 pg (27.0-31.0); MEAN CORPUSCULAR HGB CONC 34.2 g/dL (33.0-37.0); MEAN PLATELET VOLUME 7.2 fL (7.2-11.7); MONO # 0.7 K/uL (0.0-0.8); MONO % 11.5 % (0.0-10.0); NEUT % 63.3 % (50.0-75.0); RBC 3.67 Mil/uL (4.40-5.90); RED CELL DISTRIBUTION WIDTH 13.6 % (11.5-14.5); WHITE BLOOD COUNT 6.4 K/uL (4.8-10.8)
[2017-11-16 14:15] LABS: ALB/GLOB RATIO 0.8 (1.0-2.1); ALBUMIN 3.5 g/dL (3.5-5.0); ALT/SGPT 24 U/L (21-72); AST/SGOT 28 U/L (17-59); BLOOD UREA NITROGEN 13 mg/dL (9-20); CALCIUM 8.5 mg/dl (8.6-10.4); GFR AFRICAN-AMERICAN > 60; GFR NON-AFRICAN AMERICAN > 60
--- NOTE | 2017-11-16 15:36 | MRI ---
MRI left forefoot History: Infection. Comparison: X-ray dated 11/14/2017 Technique: Multi-echo multiplanar sequences were performed through the left forefoot without the use of intravenous contrast. Findings: Prominent soft tissue defect seen within the volar soft tissues of the mid and forefoot extending along the interspace of the 1st and 2nd digits. Prominent reticulation and edema seen within the adjacent volar musculature of mid and forefoot. Clinical correlation. Severe hallux valgus deformity. Subchondral cyst formation seen at the medial aspect of the 1st metatarsal head. Fraying with increased signal seen at the level of the Lisfranc ligament which may represent some partial tearing and or strain. Mild nonspecific reactive edema seen at the head of the 1st proximal phalanx. Reactive edema seen within the volar soft tissues at the level of the 2nd middle and distal phalanges, nonspecific. In addition, there is signal abnormality within the 2nd middle and distal phalanges with some increased STIR signal. This is nonspecific; however, mild early acute infectious and or inflammatory changes cannot be excluded at this level. Mild reactive edema seen within the volar soft tissues at the level of the 3rd middle and distal phalanges some minimal increased signal seen within the 3rd middle and distal phalanges. Again mild early acute infectious and or inflammatory changes cannot entirely be excluded at these levels. Signal abnormality seen at the base of the 4th metatarsal bone with decreased T1 signal and increased STIR signal suggestive for osteochondral change. Subchondral cyst formation seen within the lateral aspect of the cuboid bone. Impression: 1. Prominent soft tissue defect seen within the volar soft tissues of the mid and forefoot extending along the interspace of the 1st and 2nd digits. Prominent reticulation and edema seen within the adjacent volar musculature of mid and forefoot. Clinical correlation. 2. Severe hallux valgus deformity. Subchondral cyst formation seen at the medial aspect of the 1st metatarsal head. 3. Fraying with increased signal seen at the level of the Lisfranc ligament which may represent some partial tearing and or strain. 4. Mild nonspecific reactive edema seen at the head of the 1st proximal phalanx. Reactive edema seen within the volar soft tissues at the level of the 2nd middle and distal phalanges, nonspecific. In addition, there is signal abnormality within the 2nd middle and distal phalanges with some increased STIR signal. This is nonspecific; however, mild early acute infectious and or inflammatory changes cannot be excluded at this level. Mild reactive edema seen within the volar soft tissues at the level of the 3rd middle and distal phalanges some minimal increased signal seen within the 3rd middle and distal phalanges. Again mild early acute infectious and or inflammatory changes cannot entirely be excluded at these levels. 5. Signal abnormality seen at the base of the 4th metatarsal bone with decreased T1 signal and increased STIR signal suggestive for osteochondral change. 6. Subchondral cyst formation seen within the lateral aspect of the cuboid bone.
--- NOTE | 2017-11-16 16:36 | CARD ---
APPROVED REPORT EKG Measurement Heart [id number] <Conclusion> Normal sinus rhythm Normal ECG
--- NOTE | 2017-11-16 17:40 | CP.PCM.PN ---
Subjective - Date & Time of Evaluation Date of Evaluation: 11/16/17 Time of Evaluation: 17:37 - Subjective Subjective: S: Feels better. No fever. Objective - Vital Signs/Intake and Output Vital Signs (last 24 hours): Temp Pulse Resp BP Pulse Ox 99.4 F 85 20 121/66 95 11/16/17 15:15 11/16/17 15:15 11/16/17 15:15 11/16/17 15:15 11/16/17 15:15 Intake and Output: 11/16/17 11/16/17 06:59 18:59 Intake Total 840 Output Total 1200 825 Balance -1200 15 - Medications Medications: Current Medications Acetaminophen (Tylenol 325mg Tab) 650 mg PO Q6 PRN PRN Reason: Pain, MILD (1-3) Last Admin: 11/15/17 17:05 Dose: 650 mg Heparin Sodium (Porcine) (Heparin) 5,000 units SC Q12 [facility] Last Admin: 11/14/17 22:04 Dose: 5,000 units Vancomycin/Sodium Chloride (Vancomycin 1 Gm/Ns 200 Ml) 1 gm in 200 mls @ 133 mls/hr IVPB Q12H [facility] PRN Reason: Protocol Stop: 11/21/17 01:01 Last Admin: 11/16/17 12:48 Dose: 133 mls/hr Insulin Human Regular (Novolin R) 0 unit SC ACHS [facility] PRN Reason: Protocol Last Admin: 11/16/17 12:20 Dose: 4 unit Oxycodone/Acetaminophen (Percocet 5/325 Mg Tab) 1 tab PO Q8 PRN PRN Reason: Pain, moderate (4-7) Stop: 11/17/17 22:01 Last Admin: 11/16/17 10:56 Dose: 1 tab - Labs Labs: 11/16/17 13:56 11/16/17 13:56 PT 12.3 SECONDS (9.7-12.2) H 11/15/17 05:58 INR 1.1 11/15/17 05:58 - Constitutional Appears: No Acute Distress - Head Exam Head Exam: NORMAL INSPECTION - Eye Exam Eye Exam: Normal appearance - ENT Exam ENT Exam: Normal Exam - Neck Exam Neck Exam: Normal Inspection - Respiratory Exam Respiratory Exam: NORMAL BREATHING PATTERN - Cardiovascular Exam Cardiovascular Exam: REGULAR RHYTHM - GI/Abdominal Exam GI & Abdominal Exam: Soft - Rectal Exam Rectal Exam: Deferred - Extremities Exam Extremities Exam: Tenderness (left foot with dressing) - Neurological Exam Neurological Exam: Awake - Skin Skin Exam: Warm Assessment and Plan (1) Cellulitis Status: Acute (2) Diabetes Status: Acute - Assessment and Plan (Free Text) Assessment: A/P: Continue wound care. Cntinue IV antibiotic
--- NOTE | 2017-11-16 19:28 | CP.PCM.PN ---
Subjective - Date & Time of Evaluation Date of Evaluation: 11/16/17 Time of Evaluation: 09:00 - Subjective Subjective: feels a little better no fever/ chills MRI equivocal may need 6 weeks rx await ID and sensitivity Objective - Vital Signs/Intake and Output Vital Signs (last 24 hours): Temp Pulse Resp BP Pulse Ox 99.4 F 85 20 121/66 95 11/16/17 15:15 11/16/17 15:15 11/16/17 15:15 11/16/17 15:15 11/16/17 15:15 Intake and Output: 11/16/17 11/17/17 18:59 06:59 Intake Total 840 Output Total 825 Balance 15 - Medications Medications: Current Medications Acetaminophen (Tylenol 325mg Tab) 650 mg PO Q6 PRN PRN Reason: Pain, MILD (1-3) Last Admin: 11/16/17 17:56 Dose: 650 mg Docusate Sodium (Colace) 100 mg PO TID [facility] Last Admin: 11/16/17 17:57 Dose: 100 mg Heparin Sodium (Porcine) (Heparin) 5,000 units SC Q12 [facility] Last Admin: 11/14/17 22:04 Dose: 5,000 units Vancomycin/Sodium Chloride (Vancomycin 1 Gm/Ns 200 Ml) 1 gm in 200 mls @ 133 mls/hr IVPB Q12H [facility] PRN Reason: Protocol Stop: 11/21/17 01:01 Last Admin: 11/16/17 12:48 Dose: 133 mls/hr Insulin Human Regular (Novolin R) 0 unit SC ACHS [facility] PRN Reason: Protocol Last Admin: 11/16/17 17:42 Dose: 3 unit Oxycodone/Acetaminophen (Percocet 5/325 Mg Tab) 1 tab PO Q8 PRN PRN Reason: Pain, moderate (4-7) Stop: 11/17/17 22:01 Last Admin: 11/16/17 10:56 Dose: 1 tab - Labs Labs: 11/16/17 13:56 11/16/17 13:56 PT 12.3 SECONDS (9.7-12.2) H 11/15/17 05:58 INR 1.1 11/15/17 05:58 - Constitutional Appears: Non-toxic, Chronically Ill - Head Exam Head Exam: NORMOCEPHALIC - Eye Exam Eye Exam: PERRL - ENT Exam ENT Exam: Mucous Membranes Dry - Neck Exam Neck Exam: absent: Lymphadenopathy - Respiratory Exam Respiratory Exam: Decreased Breath Sounds - Cardiovascular Exam Cardiovascular Exam: REGULAR RHYTHM - GI/Abdominal Exam GI & Abdominal Exam: Distended, Soft - Rectal Exam Rectal Exam: Deferred - Exam Exam: NORMAL INSPECTION - Extremities Exam Extremities Exam: Pedal Edema - Back Exam Back Exam: absent: CVA tenderness (L), CVA tenderness (R) - Neurological Exam Neurological Exam: Alert, Awake, Oriented x3 Neuro motor strength exam: Left Upper Extremity: 5, Right Upper Extremity: 5, Left Lower Extremity: 5, Right Lower Extremity: 5 - Psychiatric Exam Psychiatric exam: Normal Mood - Skin Skin Exam: Dry Assessment and Plan (1) Diabetic foot infection Status: Acute (2) Cellulitis Status: Acute (3) Puncture wound Status: Acute - Assessment and Plan (Free Text) Assessment: cont iv rx
[2017-11-17] MEDS: Vancomycin 1 gm/NS 200 ml 1 GM/200 ML BAG IVPB SCH ×2 (02:00→13:52)
--- NOTE | 2017-11-17 08:21 | CP.PCM.PN ---
Subjective - Date & Time of Evaluation Date of Evaluation: 11/17/17 Time of Evaluation: 07:50 - Subjective Subjective: Patient no complain; no more fever. No CP, no SOB, no cough nor palpitaton. R foot heel is cracking - getting fissure. Objective - Vital Signs/Intake and Output Vital Signs (last 24 hours): Temp Pulse Resp BP Pulse Ox 98.4 F 62 20 127/56 L 94 L 11/16/17 23:45 11/16/17 23:45 11/16/17 23:45 11/16/17 23:45 11/16/17 23:45 Intake and Output: 11/17/17 11/17/17 06:59 18:59 Intake Total 800 Output Total 1000 Balance -200 - Medications Medications: Current Medications Acetaminophen (Tylenol 325mg Tab) 650 mg PO Q6 PRN PRN Reason: Pain, MILD (1-3) Last Admin: 11/16/17 17:56 Dose: 650 mg Docusate Sodium (Colace) 100 mg PO TID [facility] Last Admin: 11/16/17 17:57 Dose: 100 mg Heparin Sodium (Porcine) (Heparin) 5,000 units SC Q12 [facility] Last Admin: 11/14/17 22:04 Dose: 5,000 units Vancomycin/Sodium Chloride (Vancomycin 1 Gm/Ns 200 Ml) 1 gm in 200 mls @ 133 mls/hr IVPB Q12H [facility] PRN Reason: Protocol Stop: 11/21/17 01:01 Last Admin: 11/17/17 02:00 Dose: 133 mls/hr Insulin Human Regular (Novolin R) 0 unit SC ACHS [facility] PRN Reason: Protocol Last Admin: 11/16/17 21:33 Dose: Not Given Oxycodone/Acetaminophen (Percocet 5/325 Mg Tab) 1 tab PO Q8 PRN PRN Reason: Pain, moderate (4-7) Stop: 11/17/17 22:01 Last Admin: 11/16/17 10:56 Dose: 1 tab - Labs Labs: 11/16/17 13:56 11/16/17 13:56 PT 12.3 SECONDS (9.7-12.2) H 11/15/17 05:58 INR 1.1 11/15/17 05:58 - Constitutional Appears: No Acute Distress - Eye Exam Eye Exam: Normal appearance - ENT Exam ENT Exam: Mucous Membranes Moist - Neck Exam Neck Exam: Full ROM. absent: Lymphadenopathy, Meningismus - Respiratory Exam Respiratory Exam: Decreased Breath Sounds. absent: Rales, Rhonchi, Wheezes - Cardiovascular Exam Cardiovascular Exam: +S1, +S2. absent: Gallop, REGULAR RHYTHM, JVD - GI/Abdominal Exam GI & Abdominal Exam: Soft. absent: Tenderness, Normal Bowel Sounds - Extremities Exam Extremities Exam: Joint Swelling. absent: Full ROM, Normal Capillary Refill, Pedal Edema Assessment and Plan - Assessment and Plan (Free Text) Assessment: NIDDM, CAD Cont meds/ Start ASA
[2017-11-17 08:30] VITALS: BP 138/67; PULSE 64; RESP 18; TEMP 98.1; O2SAT 96
[2017-11-17] MEDS: (Novolin R) Insulin Human Regular 100 units/ml vial SC SCH ×3 (08:40→17:14)
[2017-11-17 08:44] LABS: BASO # 0.1 K/uL (0.0-0.2); EOS # 0.3 K/uL (0.0-0.7); HEMOGLOBIN 12.1 g/dL (12.0-18.0); LYMPH # 1.8 K/uL (1.0-4.3); MEAN CELL VOLUME 90.3 fL (80.0-94.0); MEAN CORPUSCULAR HEMOGLOBIN 30.6 pg (27.0-31.0); MEAN CORPUSCULAR HGB CONC 33.9 g/dL (33.0-37.0); MEAN PLATELET VOLUME 7.4 fL (7.2-11.7); MONO # 0.7 K/uL (0.0-0.8); MONO % 9.6 % (0.0-10.0); NEUT # 3.9 K/uL (1.8-7.0); NEUT % 58.4 % (50.0-75.0); RBC 3.97 Mil/uL (4.40-5.90); RED CELL DISTRIBUTION WIDTH 13.4 % (11.5-14.5); WHITE BLOOD COUNT 6.8 K/uL (4.8-10.8)
[2017-11-17 09:15] LABS: ALB/GLOB RATIO 0.8 (1.0-2.1); ALBUMIN 3.7 g/dL (3.5-5.0); ALT/SGPT 29 U/L (21-72); AST/SGOT 33 U/L (17-59); BLOOD UREA NITROGEN 13 mg/dL (9-20); CALCIUM 9.1 mg/dl (8.6-10.4); GFR AFRICAN-AMERICAN > 60; GFR NON-AFRICAN AMERICAN > 60
--- NOTE | 2017-11-17 13:05 | CP.PCM.PN ---
Subjective - Date & Time of Evaluation Date of Evaluation: 11/17/17 Time of Evaluation: 13:03 - Subjective Subjective: Consult note for Dr. Monique 72-year-old male patient 2 days s/p Left foot Incision and Drainage was seen at bedside this morning. Patient is resting in bed with no report of acute distress. AAOx3. Dressing cdi. Patient admits to mild pain when changing dressing. Patient denies of any N/V/F/C or SOB Objective - Vital Signs/Intake and Output Vital Signs (last 24 hours): Temp Pulse Resp BP Pulse Ox 98.1 F 64 18 138/67 96 11/17/17 08:29 11/17/17 08:29 11/17/17 08:29 11/17/17 08:29 11/17/17 08:29 Intake and Output: 11/17/17 11/17/17 06:59 18:59 Intake Total 800 Output Total 1000 Balance -200 - Medications Medications: Current Medications Acetaminophen (Tylenol 325mg Tab) 650 mg PO Q6 PRN PRN Reason: Pain, MILD (1-3) Last Admin: 11/16/17 17:56 Dose: 650 mg Docusate Sodium (Colace) 100 mg PO TID SHAN[facility] Last Admin: 11/17/17 10:53 Dose: 100 mg Heparin Sodium (Porcine) (Heparin) 5,000 units SC Q12 SHAN[facility] Last Admin: 11/14/17 22:04 Dose: 5,000 units Vancomycin/Sodium Chloride (Vancomycin 1 Gm/Ns 200 Ml) 1 gm in 200 mls @ 133 mls/hr IVPB Q12H [facility]AN[facility] PRN Reason: Protocol Stop: 11/21/17 01:01 Last Admin: 11/17/17 02:00 Dose: 133 mls/hr Insulin Human Regular (Novolin R) 0 unit SC ACHS SHANIA PRN Reason: Protocol Last Admin: 11/17/17 11:49 Dose: 3 unit Oxycodone/Acetaminophen (Percocet 5/325 Mg Tab) 1 tab PO Q8 PRN PRN Reason: Pain, moderate (4-7) Stop: 11/17/17 22:01 Last Admin: 11/16/17 10:56 Dose: 1 tab - Labs Labs: 11/17/17 08:36 11/17/17 08:36 PT 12.3 SECONDS (9.7-12.2) H 11/15/17 05:58 INR 1.1 11/15/17 05:58 - Constitutional Appears: Well, Non-toxic, No Acute Distress - Head Exam Head Exam: ATRAUMATIC - Extremities Exam Additional comments: Bilateral lower extremity exam DERM: LEFT - Incision site to plantar aspect of left foot measuring approx. 7cm linear longitudinal. No purulent drainage is noted. Mild sero sanguinous drainage noted. No maceration noted. Mild erythema noted around the incision site. No mal-odor noted. Right - Xerosis noted. Skin crack noted to heel, dried blood noted. Otherwise unremarkable VASC: Left foot warmer to touch. Palpable DP and PT noted to right foot 2/4, Non -palpable DP noted to Left foot, PT palpable 1/4. HEEL PADDER less than 3 seconds noted to all digits ORTHO: Pain on palpation to Left foot distal to ankel joint. NEURO: Gross sensation intact - Neurological Exam Neurological Exam: Alert, Awake, Oriented x3 - Psychiatric Exam Psychiatric exam: Normal Affect, Normal Mood Assessment and Plan - Assessment and Plan (Free Text) Assessment: 72 yo male patient with puncture wound to left plantar foot Plan: Patient was seen, evaluated Rounded with Dr. Monique labs and vitals reviewed; WBC 6.8, Afebrile WCX Final : MRSA Left foot cleansd with peroxide, dressed with DSD, ABD, BOAZ bandage Partial weight bearing to Left heel as tolerated Possible additional surgical intervention as per Dr. Monique Podiatry will continue to follow in-house
--- NOTE | 2017-11-17 16:43 | RAD ---
HISTORY: verify right picc COMPARISON: No prior. FINDINGS: In situ right-sided PICC line with tip in the SVC. LUNGS: Poor inspiration with low lung volumes, crowded bronchovascular markings and mild bibasilar atelectasis. Interstitial markings are also increased ; rule out sequela of reactive/inflammatory airway disease or viral illness versus mild chronic compensated pulmonary edema/ CHF. PLEURA: No significant pleural effusion identified, no pneumothorax apparent. CARDIOVASCULAR: Borderline enlarged borderline enlarged. OSSEOUS STRUCTURES: No significant abnormalities. VISUALIZED UPPER ABDOMEN: Normal. OTHER FINDINGS: None. IMPRESSION: In situ PICC line as above . Poor inspiration with low lung volumes, crowded bronchovascular markings and mild bibasilar atelectasis. Interstitial markings are also increased ; rule out sequela of reactive/inflammatory airway disease or viral illness versus mild chronic compensated pulmonary edema/ CHF.
--- NOTE | 2017-11-17 16:57 | CP.PCM.PN ---
Subjective - Date & Time of Evaluation Date of Evaluation: 11/17/17 Time of Evaluation: 16:57 - Subjective Subjective: PATIENT WAS ADMITTED FOR CELLULITIS AND FOOT ABSCESS AAOX3/ DENIES CHEST PAIN /SOB /NAUSEA OR VOMITING NO SIGN OF DISTRESS NOTED Objective - Vital Signs/Intake and Output Vital Signs (last 24 hours): Temp Pulse Resp BP Pulse Ox 98.1 F 64 18 138/67 96 11/17/17 08:29 11/17/17 08:29 11/17/17 08:29 11/17/17 08:29 11/17/17 08:29 Intake and Output: 11/17/17 11/17/17 06:59 18:59 Intake Total 800 500 Output Total 1000 Balance -200 500 - Medications Medications: Current Medications Acetaminophen (Tylenol 325mg Tab) 650 mg PO Q6 PRN PRN Reason: Pain, MILD (1-3) Last Admin: 11/16/17 17:56 Dose: 650 mg Docusate Sodium (Colace) 100 mg PO TID [facility] Last Admin: 11/17/17 14:13 Dose: 100 mg Heparin Sodium (Porcine) (Heparin) 5,000 units SC Q12 SHAN[facility] Last Admin: 11/14/17 22:04 Dose: 5,000 units Vancomycin/Sodium Chloride (Vancomycin 1 Gm/Ns 200 Ml) 1 gm in 200 mls @ 133 mls/hr IVPB Q12H [facility] PRN Reason: Protocol Stop: 11/21/17 01:01 Last Admin: 11/17/17 13:52 Dose: 133 mls/hr Insulin Human Regular (Novolin R) 0 unit SC ACHS SHANIA PRN Reason: Protocol Last Admin: 11/17/17 11:49 Dose: 3 unit Oxycodone/Acetaminophen (Percocet 5/325 Mg Tab) 1 tab PO Q8 PRN PRN Reason: Pain, moderate (4-7) Stop: 11/17/17 22:01 Last Admin: 11/16/17 10:56 Dose: 1 tab - Labs Labs: 11/17/17 08:36 11/17/17 08:36 PT 12.3 SECONDS (9.7-12.2) H 11/15/17 05:58 INR 1.1 11/15/17 05:58 Assessment and Plan - Assessment and Plan (Free Text) Assessment: PATIENT SEEN AND EXAMINED AT THE BEDSIDE LUNG SOUND CLEAR MERI AFEBRILE/ NO WHITE COUNT/VITALS SIGN ARE STABLE LEFT FOOT DRESSING DRY AND INTACT PER DR ALEMAN NON WEIGHT BEARING PHYSICAL THERAPY AT THIS TIME MRI OF THE FOOT TO R/O OM PATIENT WILL BE TX WITH 6 WEEKS OF ABX PICC LINE INSERTED/ CHEST XRAY CONFIRM/ LINE IS OK TO USE FOR [facility] ABX WOUND CULTURE WAS POSITIVE FOR MRSA AND ID IS AWARE AND PATIENT IS ON VANCO DISCUSS WITH DR EVANS AND DR HUSSEIN WHO AGREE AND CLEAR PATIENT FOR REHAB PLACE UNDER THE SERVICE OF DR HUSSEIN AT [facility] ---CALL DR HUSSEIN FOR ADMITTING ORDER FOLLOW UP WITH DR MARCOS ---CALL FOR APPOINTMENT FOLLOW UP WITH DR EVANS ---CALL FOR APPOINTMENT CONTINUE ALL HOME MEDICATION ORDER NEW PRESCRIPTION GIVEN PERCOCET 1 TAB Q8H PRN FOR PAIN X3DAYS ZOSYN Q8H IV FOR 6 WEEKS VANCO 1 G IV FOR 6 W[address]KS WOUND CARE PER DR ALEMAN AND FACILITY PROTOCOL [facility] T[facility]ER[facility] AND PER FACILITY PROTOCOL NON WEIGHT BEARING ON THE LEFT PLANTAR CALL DR HUSSEIN OR DR ALEMAN FOR FURTHER ORDERS DISCUSS WITH PATIENT WHO AGREE AND VERBALIZED UNDERSTANDING
--- NOTE | 2017-11-17 19:06 | CP.PCM.PN ---
Subjective - Date & Time of Evaluation Date of Evaluation: 11/17/17 Time of Evaluation: 09:00 - Subjective Subjective: c/o pain IV rx in progress has MRSA OM of foot s/p I and D wound care in progress Objective - Vital Signs/Intake and Output Vital Signs (last 24 hours): Temp Pulse Resp BP Pulse Ox 98.1 F 64 18 138/67 96 11/17/17 08:29 11/17/17 08:29 11/17/17 08:29 11/17/17 08:29 11/17/17 08:29 Intake and Output: 11/17/17 11/18/17 18:59 06:59 Intake Total 500 Balance 500 - Medications Medications: Current Medications Acetaminophen (Tylenol 325mg Tab) 650 mg PO Q6 PRN PRN Reason: Pain, MILD (1-3) Last Admin: 11/16/17 17:56 Dose: 650 mg Docusate Sodium (Colace) 100 mg PO TID [facility] Last Admin: 11/17/17 17:13 Dose: 100 mg Heparin Sodium (Porcine) (Heparin) 5,000 units SC Q12 [facility] Last Admin: 11/14/17 22:04 Dose: 5,000 units Vancomycin/Sodium Chloride (Vancomycin 1 Gm/Ns 200 Ml) 1 gm in 200 mls @ 133 mls/hr IVPB Q12H [facility]ANIA PRN Reason: Protocol Stop: 11/21/17 01:01 Last Admin: 11/17/17 13:52 Dose: 133 mls/hr Insulin Human Regular (Novolin R) 0 unit SC ACHS SHANIA PRN Reason: Protocol Last Admin: 11/17/17 17:14 Dose: 3 unit Oxycodone/Acetaminophen (Percocet 5/325 Mg Tab) 1 tab PO Q8 PRN PRN Reason: Pain, moderate (4-7) Stop: 11/17/17 22:01 Last Admin: 11/16/17 10:56 Dose: 1 tab - Labs Labs: 11/17/17 08:36 11/17/17 08:36 PT 12.3 SECONDS (9.7-12.2) H 11/15/17 05:58 INR 1.1 11/15/17 05:58 - Constitutional Appears: Non-toxic, Chronically Ill - Head Exam Head Exam: NORMOCEPHALIC - Eye Exam Eye Exam: PERRL - ENT Exam ENT Exam: Mucous Membranes Dry - Neck Exam Neck Exam: absent: Lymphadenopathy - Respiratory Exam Respiratory Exam: Decreased Breath Sounds - Cardiovascular Exam Cardiovascular Exam: REGULAR RHYTHM - GI/Abdominal Exam GI & Abdominal Exam: Distended - Rectal Exam Rectal Exam: Deferred - Exam Exam: NORMAL INSPECTION - Extremities Exam Extremities Exam: absent: Pedal Edema - Back Exam Back Exam: absent: CVA tenderness (L), CVA tenderness (R) - Neurological Exam Neurological Exam: Alert, Awake, Oriented x3 Assessment and Plan (1) Diabetic foot infection Status: Acute (2) Cellulitis Status: Acute (3) Puncture wound Status: Acute - Assessment and Plan (Free Text) Assessment: cont iv rx for 6 weeks vanco level mon and thurs serial crp, creat
[2017-11-17] MEDS: Oxycodone/Acetaminophen 5/325 mg Tab PO PRN (19:50)
--- NOTE | 2017-11-18 13:24 | PCM.OP ---
Operative Report - Operative Report Date of Surgery/Procedure: 11/15/17 Time of Surgery/Procedure: 10:00 Surgeon: Dr. Monique Bacteriology Professor: Dr. Dayron Diane Anesthesia/Sedation: IV sedation and local Pre-Operative Diagnosis: Left foot abscess secondary to neglected puncture wound Post-Operative Diagnosis: same Indication for Surgery: Indications: The patient is a 72 year-old male with the above diagnoses. The patient has exhausted all conservative treatment at this time and now requires surgical intervention. The patient signed the consent after careful explanation of risks, benefits, complication and alternatives for surgical procedure. No guarantees were given nor implied. NPO status was confirmed prior to taking patient to the OR. Operative Findings: Preparation: The patient was brought in to the operating room and placed on the operating room table in a supine position. Timeout was performed for identification of the correct patient and procedure. After induction of general anesthesia, the left lower extremity was then prepped and draped in normal sterile manner and the procedure began. No tourniquet was used during the procedure. Procedure/Operation Description: Procedure: Left foot and leg incision and drainage with excisional debridement of non-viable tissue. Attention was then directed to the plantar aspect of the Left mid foot where a small puncture wound noted measuring approximately 0.5cm x 0.5cm x 1cm. Approximately 7cm linear longitudinal incision was made with #15 blade including the puncture wound along the course. Upon palpation of the Left foot, 10 cc of purulent drainage was discharged from the plantar incision. Utilizing #15 blade and forceps, non-viable soft-tissue was gently excised. After all the non-viable soft tissue was adequately excised and debrided, healthy bleeding was noted from the area of debridement. Utilizing peroxide, all five incision sites were copiously irrigated. The plantar wound was left open and packed with peroxide soaked DSD. The Left foot was then dressed with 4x4 gauze, ABD pads, Kerlix and BOAZ bandage. The attending was present during the entire case. Estimated Blood Loss: 25mL Complications: None Discharge & Condition: Postoperative Condition: The patient tolerated the anesthesia and procedure well and was escorted to the recovery room with vital signs stable and neurovascular status intact to the Left foot. Patient will go back to the floor for continued IV abx treatment.
== END 2017-11-17 20:00 | disposition home or self-care (01) | DRG 603 ==
LOC: C.ER 14:20 → C.5S 16:30 → C.9E 16:30
PROVIDERS: ADMIT Internal Medicine; ATTEND Internal Medicine
PROC: 0HBNXZZ Excision of Left Foot Skin, External Approach (ICD-10-PCS; 2017-11-15)
PROC: 02HV33Z Insertion of Infusion Device into Superior Vena Cava, Percutaneous Approach (ICD-10-PCS; principal; 2017-11-17)
DX: L03.116 Cellulitis of left lower limb (principal); E10.621 Type 1 diabetes mellitus with foot ulcer; L97.529 Non-pressure chronic ulcer of other part of left foot with unspecified severity; S91.332A Puncture wound without foreign body, left foot, initial encounter; W45.0XXA Nail entering through skin, initial encounter; F17.210 Nicotine dependence, cigarettes, uncomplicated; I25.10 Atherosclerotic heart disease of native coronary artery without angina pectoris; B95.62 Methicillin resistant Staphylococcus aureus infection as the cause of diseases classified elsewhere